=== PATIENT | male | born 1975 | race Two or more races ===

== ENCOUNTER 2024-10-09 17:56 | Emergency (ER) | payer MEDICAID ==
[~2024-10-09] VITALS: Ht 165.1 cm; Wt 65.0 kg
[~2024-10-09 17:56] MED LIST: INSU100I28 SQ; LIP40 PO; METF-416 MT
[2024-10-09 18:03] VITALS: TEMP 36.7; O2SAT 96
[2024-10-09] MEDS: ACETAMINOPHEN 500MG TABLET PO ONE (19:11)
[2024-10-09] MEDS: ONDANSETRON 4MG ODT PO ONE (19:11)
[2024-10-09 20:18] LABS: BASOPHILS % 1.3 % (0.0-2.0); EOSINOPHILS % 1.9 % (0.0-5.0); HEMATOCRIT. 41.1 % (42.0-52.0); HEMOGLOBIN. 14.6 g/dL (14.0-18.0); LYMPHOCYTES % 29.3 % (20.0-50.0); MEAN PLATELET VOLUME 7.8 fl (7.4-10.4); MONOCYTES % 7.1 % (2.0-8.0); NEUTROPHILS % 60.4 % (40.0-76.0); PLATELET 306 x1000/uL (130-400); RED BLOOD CELL COUNT 4.54 mill/uL (4.7-6.1); RED CELL DISTRIBUTION WIDTH 12.3 % (11.6-14.6)
[2024-10-09] MEDS: SODIUM CHLORIDE 0.9% 1,000 ML IV ONE (20:27)
[2024-10-09 20:32] LABS: CREATININE 0.7 mg/dL (0.6-1.3); TROPONIN I HIGH SENSITIVITY 7 ng/L (3.0-53); UREA NITROGEN BLOOD 5 mg/dL (9-23)
[2024-10-09 20:33] LABS: ETHANOL BLOOD 202 mg/dL (<10)
[2024-10-09 20:34] LABS: ASPARTATE AMINOTRANSFERASE 18 IU/L (<34); BILIRUBIN DIRECT 0.1 mg/dL (<=3.0)
[2024-10-09 20:35] LABS: BILIRUBIN TOTAL 0.5 mg/dL (0.1-1.0); PROTEIN TOTAL 8.6 g/dL (6.0-8.3)
[2024-10-09 21:15] VITALS: BP 147/97; PULSE 113; RESP 18; O2SAT 100
== END 2024-10-09 21:15 | disposition home or self-care (01) ==
LOC: ER 17:56
DX: F10.129 Alcohol abuse with intoxication, unspecified (principal); G44.209 Tension-type headache, unspecified, not intractable; E11.9 Type 2 diabetes mellitus without complications; I10 Essential (primary) hypertension; Z88.0 Allergy status to penicillin; Z79.4 Long term (current) use of insulin; Y90.7 Blood alcohol level of 200-239 mg/100 ml
CPT/HCPCS: 80076; 80048; 80320; 82962; 83690; 83735; 85025; 86850; 86900; 86901; 84484; 36415; 71045; 93005; 96360; 99285; Q0162; J7030; G0480

== ENCOUNTER 2025-01-14 20:45 | Emergency (ER) | payer MEDICAID ==
[~2025-01-14] VITALS: Ht 152.4 cm; Wt 55.3 kg
[2025-01-14 20:52] VITALS: O2SAT 100
[2025-01-14 21:03] VITALS: BP 113/79; PULSE 61; RESP 16; TEMP 36.9; O2SAT 98
[2025-01-14] MEDS: KETOROLAC 30MG/ML VIAL IM ONE (23:00)
[2025-01-14] MEDS ORDERED: IBUP-1455 MT (23:54)
== END 2025-01-15 00:24 | disposition home or self-care (01) ==
LOC: ER 20:45
DX: S93.401A Sprain of unspecified ligament of right ankle, initial encounter (principal); E11.9 Type 2 diabetes mellitus without complications; Z79.899 Other long term (current) drug therapy; Z88.0 Allergy status to penicillin; Z79.4 Long term (current) use of insulin; Z79.84 Long term (current) use of oral hypoglycemic drugs; X50.1XXA Overexertion from prolonged static or awkward postures, initial encounter; Y93.01 Activity, walking, marching and hiking; Y92.89 Other specified places as the place of occurrence of the external cause; Y99.8 Other external cause status
CPT/HCPCS: 99284; 73610; 73630; 96372; J1885